=== PATIENT | female | born 1945 | race Caucasian/White ===

== ENCOUNTER 2021-06-23 00:42 | Day surgery (SDC) | payer MEDICARE, BC, SELFPAY ==
[2021-06-13 13:21] VITALS: BMI 29.7
[2021-06-23 06:50] VITALS: BP 150/68; PULSE 83; RESP 18; TEMP 36.3; O2SAT 100; BMI 30.9
[2021-06-23] MEDS: LACTATED RINGERS 1,000 ML 150 ML IV CONT (07:08)
[2021-06-23 07:11] LABS: Glucose Point of Care 199 mg/dl (65-105)
--- NOTE | 2021-06-23 07:28 | WPDGICN ---
Assessment and Plan Assessment and plan (1) History of colon polyps: Code(s): Z86.010 - Personal history of colonic polyps Status: Acute Assessment and Plan: Patient has a personal prior history of colon polyps. Plan is for surveillance colonoscopy now and at 5 year intervals in the future. GI Consult Note Consult date/time: 06/23/21 07:28 HPI: Kari Nicole is a 76 year old female Presents for screening colonoscopy. Patient has a prior history of colon polyps. Previous colonoscopy 2014, 2008 in 2004. Patient presents today for neoplasia screening. She states her current weight appetite and bowel movements are normal. She denies abdominal pain. She has had no bleeding. Her family history is noncontributory. Review of Systems Review of Systems: All systems reviewed & are unremarkable except as noted in HPI and below PMFSH Social History Social History Living arrangements: with family Spiritual care concerns: No Meds Home Medications and Allergies Home Medications Medication Instructions Recorded Confirmed Type alprazolam [Xanax] 0.25 mg PO BID PRN 06/13/21 06/23/21 History aspirin 81 mg PO HS 06/13/21 06/23/21 History ergocalciferol (vitamin D2) 1,250 mcg PO WEEKLY 06/13/21 06/23/21 History [Vitamin D2] escitalopram oxalate 5 mg PO HS 06/13/21 06/23/21 History glimepiride 2 mg PO BID 06/13/21 06/23/21 History metformin 1,500 mg PO DAILY 06/13/21 06/23/21 History metformin 500 mg PO QAM 06/13/21 06/23/21 History metoprolol succinate 100 mg PO HS 06/13/21 06/23/21 History omega-3 fatty acids-vitamin E 1 cap PO BID 06/13/21 06/23/21 History [Fish Oil] quinapril 40 mg PO DAILY 06/13/21 06/23/21 History rosuvastatin 5 mg PO HS 06/13/21 06/23/21 History semaglutide [Ozempic] 1 mg SUBCUT WEEKLY 06/13/21 06/23/21 History sitagliptin [Januvia] 100 mg PO WEEKLY 06/13/21 06/23/21 History trospium 20 mg DAILY 06/13/21 06/23/21 History Allergies Allergy/AdvReac Type Severity Reaction Status Date / Time No Known Allergies Allergy Unknown Verified 06/23/21 06:57 Vital Signs Vital Signs - 24 hr 06/23/21 06:50 Temperature 97.3 F L Pulse Rate 83 Respiratory Rate 18 Blood Pressure 150/68 H Pulse Oximetry 100 Exam Narrative: Physical exam reveals patient to be alert. Vital signs stable. HEENT exam is unremarkable. Patient is anicteric. Lungs are clear to auscultation and percussion. Heart is without murmur or extra sounds. Abdominal exam bowel sounds are present soft nontender with no organomegaly. Digital external rectal exam is normal.
--- NOTE | 2021-06-23 07:40 | WPDANESEPPF ---
Anes - Initial Pre Proc Eval Procedure: Operation Date: 06/23/21 08:00 Proposed Procedures p Screening Colonoscopy - Dharmesh Emmanuel MD Date/Time: 06/23/21 07:40 Surgeon: Dharmesh Emmanuel MD Pre Op Diagnosis: hx of colon polyps Patient Data Age: 76 Gender: F Height: 1.57 m Weight: 76.8 kg Last Vital Signs Temp 97.3 F L 06/23/21 06:50 Pulse 83 06/23/21 06:50 Resp 18 06/23/21 06:50 BP 150/68 H 06/23/21 06:50 Pulse Ox 100 06/23/21 06:50 Allergies Allergy/AdvReac Type Severity Reaction Status Date / Time No Known Allergies Allergy Unknown Verified 06/23/21 06:57 Home Medications Medication Instructions Recorded Confirmed Type alprazolam [Xanax] 0.25 mg PO BID PRN 06/13/21 06/23/21 History aspirin 81 mg PO HS 06/13/21 06/23/21 History ergocalciferol (vitamin D2) 1,250 mcg PO WEEKLY 06/13/21 06/23/21 History [Vitamin D2] escitalopram oxalate 5 mg PO HS 06/13/21 06/23/21 History glimepiride 2 mg PO BID 06/13/21 06/23/21 History metformin 1,500 mg PO DAILY 06/13/21 06/23/21 History metformin 500 mg PO QAM 06/13/21 06/23/21 History metoprolol succinate 100 mg PO HS 06/13/21 06/23/21 History omega-3 fatty acids-vitamin E 1 cap PO BID 06/13/21 06/23/21 History [Fish Oil] quinapril 40 mg PO DAILY 06/13/21 06/23/21 History rosuvastatin 5 mg PO HS 06/13/21 06/23/21 History semaglutide [Ozempic] 1 mg SUBCUT WEEKLY 06/13/21 06/23/21 History sitagliptin [Januvia] 100 mg PO WEEKLY 06/13/21 06/23/21 History trospium 20 mg DAILY 06/13/21 06/23/21 History Laboratory Tests 06/23/21 07:02 POC Capillary Glucose 199 mg/dl H mg/dl (65-105) Patient hx anesthesia problems: none Family hx anesthesia problems: none Results Review: All pre-operative results and documents have been reviewed as part of the pre-operative evaluation. [facility] Social History Social History Living arrangements: with family Spiritual care concerns: No Anes - Eval Final PreProcedure Day of Procedure 06/23/21 07:40 Patient weight: obese Heart: regular rate and rhythm Lungs: clear to auscultation Airway: Mallampati scale class III Neurological: alert and oriented Last oral intake: >/= 8 hours ASA classification: III Emergent: no Anesthetic plan: proceed Anesthesia type and monitoring: general GIVS and standard monitoring Results Review: All pre-operative results and documents have been reviewed as part of the pre-operative evaluation. Informed Consent: The patient's anesthetic plan and its attendant risks and benefits were discussed with the patient/family/POA. Questions were solicited and answers provided to the satisfaction of the patient/family/POA.
[2021-06-23 08:17] VITALS: BP 105/43; PULSE 75; RESP 21; O2SAT 95
[2021-06-23 08:27] VITALS: BP 118/57; PULSE 78; RESP 22; O2SAT 100
[2021-06-23 08:37] VITALS: BP 138/66; PULSE 68; RESP 16; O2SAT 100
== END 2021-06-23 08:48 | disposition home or self-care (01) ==
PROVIDERS: PCP Nurse Practitioner Adult Health; Visit Provider Internal Medicine Gastroenterology
PROC: 0DJD8ZZ Inspection of Lower Intestinal Tract, Via Natural or Artificial Opening Endoscopic (ICD-10-PCS; CPT 45378; principal; 2021-06-23 08:00)
DX: Z12.11 Encounter for screening for malignant neoplasm of colon (principal); D12.2 Benign neoplasm of ascending colon; K64.8 Other hemorrhoids; Z79.82 Long term (current) use of aspirin; Z79.84 Long term (current) use of oral hypoglycemic drugs; E66.9 Obesity, unspecified; Z68.31 Body mass index [BMI] 31.0-31.9, adult
CPT/HCPCS: 45380; 82948; 88305; J2704; J7120